=== PATIENT | female | born 1940 | race Caucasian/White ===

== ENCOUNTER → 2017-01-11 | Outpatient (CLI) | payer OTHER | LOC: CIMAGING 07:52 | DX: Z12.31 Encounter for screening mammogram for malignant neoplasm of breast (principal); Z80.3 Family history of malignant neoplasm of breast | CPT/HCPCS: G0202 ==

== ENCOUNTER → 2017-11-14 | Outpatient (CLI) | payer OTHER | LOC: CIMAGING 08:31 | PROVIDERS: ATTEND Nurse Practitioner Family | DX: D73.89 Other diseases of spleen (principal) | CPT/HCPCS: 76700-PO ==

== ENCOUNTER → 2018-01-15 | Outpatient (CLI) | payer OTHER | LOC: CIMAGING 13:46 | PROVIDERS: ATTEND Internal Medicine | DX: Z12.31 Encounter for screening mammogram for malignant neoplasm of breast (principal); Z80.3 Family history of malignant neoplasm of breast ==

== ENCOUNTER → 2018-05-21 | Outpatient (CLI) | payer OTHER | LOC: CIMAGING 12:13 | PROVIDERS: ATTEND Internal Medicine | DX: M25.531 Pain in right wrist (principal); M79.89 Other specified soft tissue disorders | CPT/HCPCS: 73110-PO; 73562-PO ==

== ENCOUNTER → 2019-01-16 | Outpatient (CLI) | payer OTHER | LOC: CIMAGING 09:15 | PROVIDERS: ATTEND Nurse Practitioner | DX: Z12.31 Encounter for screening mammogram for malignant neoplasm of breast (principal); Z80.3 Family history of malignant neoplasm of breast ==